=== PATIENT | female | born 1945 | race Two or more races ===

== ENCOUNTER 2019-10-25 05:15 | Day surgery (SDC) | payer OTHER ==
[~2019-10-25 05:15] MED LIST: DIOVAN HCT 3201 EAC1 PO; GLUCOTROL XL5 MG PO; METFORMIN HCL1000 M2 PO; NORVASC5 MG PO; TOPROL XL50 M1 PO
== END 2019-10-25 14:55 | disposition home or self-care (01) ==
LOC: CIR.AMB 05:15 → ADM 08:15 → CIR.AMB 08:15
PROVIDERS: ATTEND Obstetrics & Gynecology
DX: N84.0 Polyp of corpus uteri (principal)